=== PATIENT | male | born 1955 | race Caucasian/White ===

== ENCOUNTER 2018-06-14 09:29 | Day surgery (SDC) | payer MEDICAID ==
[2018-06-14] MEDS ORDERED: PROPOFOL 10 MG/ML VIAL IV ONE (09:30)
[2018-06-14] MEDS ORDERED: LIDOCAINE 2% MDV (20MG/ML) 20ML VIAL IV ONE (09:30)
--- NOTE | 2018-06-19 16:40 | Operative Note ---
DATE OF SURGERY: OPERATION: COLONOSCOPY. PREOPERATIVE DIAGNOSIS: Personal history of colon polyps. POSTOPERATIVE DIAGNOSES: 1. Sigmoid diverticulosis, moderate to severe. 2. Internal hemorrhoids. PREPARATION QUALITY: Good to excellent. ESTIMATED BLOOD LOSS: None. COMPLICATIONS: None. SPECIMENS: None. PROCEDURE: After informed consent was obtained from the patient, he was placed in the left lateral decubitus position in the endoscopy suite, sedated and monitored by the department of anesthesia. Digital rectal exam was unremarkable. A well-lubricated [id number] colonoscope was inserted into the rectum and advanced to the cecum. Preparation quality was good to excellent. The ileocecal valve, appendiceal orifice, ascending colon, transverse colon, and descending colon were free of inflammatory changes, mass lesions, or polyp. There were [id number] sigmoid diverticular changes. The rectum was unremarkable in forward and J-turn views other than internal hemorrhoids being noted. The endoscope was straightened, the rectal ampulla deflated, and the endoscope was removed. RECOMMENDATIONS: The patient should follow a high-fiber diet and use a fiber supplement. Based on his history, I would recommend repeat exam in 5 years. As always, thank you for allowing me to participate in the healthcare of your patients. CC: ORZ Bryan
== END 2018-06-14 11:25 | disposition home or self-care (01) ==
LOC: HOP 09:29
PROVIDERS: ATTEND Internal Medicine Gastroenterology
DX: Z12.11 Encounter for screening for malignant neoplasm of colon (principal); Z86.010 Personal history of colon polyps; K57.30 Diverticulosis of large intestine without perforation or abscess without bleeding; K64.8 Other hemorrhoids; E78.00 Pure hypercholesterolemia, unspecified; J44.9 Chronic obstructive pulmonary disease, unspecified; M54.9 Dorsalgia, unspecified; R12 Heartburn; R25.2 Cramp and spasm

== ENCOUNTER 2019-04-30 14:37 | Emergency (ER) | payer MEDICARE, MEDICAID ==
[2019-04-30] MEDS ORDERED: 0.9 % SODIUM CHLORIDE 1,000 ML BAG IV ONE (15:09)
[2019-04-30 15:24] LABS: ABSOLUTE NEUTROPHIL COUNT 5.76; BASO % 1.5 % (0-6); EOS % 6.3 % (0-6); GRAN % 69.6 % (47-80); HEMATOCRIT 43.7 % (42.0-52.0); LYMPH % 11.9 % (16-45); MEAN CELL VOLUME 84.9 fl (81-97); MEAN CORPUSCULAR HEMOGLOBIN 27.2 pg (27-33); MEAN PLATELET VOLUME 11.2 fl (7.4-10.4); MONO % 10.7 % (0-9); PLATELET COUNT 350 K/uL (130-400); RED BLOOD COUNT 5.15 M/uL (4.40-5.70); RED CELL DISTRIBUTION WIDTH 14.4 % (11.5-14.5); WHITE BLOOD COUNT W/O DIFF 8.3 K/uL (4.2-12.2)
[2019-04-30 15:46] LABS: BLOOD UREA NITROGEN 13 mg/dL (8-23)
[2019-04-30 15:47] LABS: CREATININE 1.1 mg/dL (0.7-1.2); EST GLOMERULAR FILTRATION RATE > 60 mL/min; TOTAL PROTEIN 7.5 g/dL (6.6-8.7)
[2019-04-30 15:49] LABS: GLUCOSE,RANDOM 87 mg/dL (74-109)
--- NOTE | 2019-04-30 15:51 | Emergency Department Record ---
History of Present Illness - General Chief Complaint: Arrythmia/Palpitations Stated Complaint: RAPID HEART RATE Time Seen by Provider: 04/30/19 14:53 Source: Patient Mode of Arrival: Wheelchair Limitations: No limitations - History of Present Illness Initial Comments: pt went to his pcp and was found to have a hr of 156 and was sent to the ed. pt has no symptoms MD Complaint: Rapid heart beat -: Unknown Context: Other Associated Symptoms: Denies other symptoms - Related Data Previous Rx's Medication Instructions Recorded Apixaban [Eliquis] 5 mg PO BID #14 tablet 04/30/19 Metoprolol Tartrate [Lopressor] 12.5 mg PO Q12H #20 tab 04/30/19 Allergies Allergy/AdvReac Type Severity Reaction Status Date / Time codeine Allergy Intermediate NAUSEA AND Verified 04/30/19 14:40 VOMITING diclofenac sodium Allergy Intermediate SWELLING Verified 04/30/19 14:40 [From Arthrotec] OF THE FACE meloxicam [From Mobic] Allergy Intermediate SWELLING Verified 04/30/19 14:40 OF THE FACE misoprostol [From Arthrotec] Allergy Intermediate SWELLING Verified 04/30/19 14:40 OF THE FACE Travel Screening - Travel/Exposure Within Last 30 Days Have you traveled within the last 30 days?: No - Travel Symptoms Symptom Screening: None Review of Systems Reviewed: No additional complaints except as noted below Constitutional: Reports: As per HPI. Denies: Chills, Fever, Malaise, Night swea ts, Weakness, Weight change Eyes: Reports: As per HPI. Denies: Eye discharge, Eye pain, Photophobia, Vision change ENT: Reports: As per HPI. Denies: Congestion, Dental pain, Ear pain, Epistaxis, Hearing loss, Throat pain Respiratory: Reports: As per HPI. Denies: Cough, Dyspnea, Hemoptysis, Stridor, Wheezes Cardiovascular: Reports: As per HPI. Denies: Arrhythmia, Chest pain, Dyspnea on exertion, Edema, Murmurs, Orthopnea, Palpitations, Paroxysmal nocturnal dyspnea, Rheumatic Fever, Syncope Endocrine: Reports: As per HPI. Denies: Fatigue, Heat or cold intolerance, P olydipsia, Polyuria Gastrointestinal: Reports: As per HPI. Denies: Abdominal pain, Constipation, Diarrhea, Hematemesis, Hematochezia, Melena, Nausea, Vomiting Genitourinary: Reports: As per HPI. Denies: Dysuria, Frequency, Hematuria, Incontinence, Retention, Testicular pain, Testicular mass, Urgency Musculoskeletal: Reports: As per HPI. Denies: Arthralgia, Back pain, Gout, Joint swelling, Myalgia, Neck pain Skin: Reports: As per HPI. Denies: Bruising, Change in color, Change in hair/nails, Lesions, Pruritus, Rash Neurological: Reports: As per HPI. Denies: Abnormal gait, Confusion, Headache, Numbness, Paresthesias, Seizure, Tingling, Tremors, Vertigo, Weakness Psychiatric: Reports: As per HPI. Denies: Anxiety, Auditory hallucinations, Depression, Homicidal thoughts, Suicidal thoughts, Visual hallucinations Hematological/Lymphatic: Reports: As per HPI. Denies: Anemia, Blood Clots, Easy bleeding, Easy bruising, Swollen glands Past Medical History - SOCIAL HISTORY Smoking Status: Former smoker Alcohol Use: None Drug Use: None - RESPIRATORY Hx Respiratory Disorders: Yes Hx COPD: Yes - CARDIOVASCULAR Hx Cardio Disorders: Yes Comment:: borderline high cholesterol-on simvastatin - NEURO Hx Neuro Disorders: No - GI Hx GI Disorders: Yes Hx Reflux: Yes (rare) Hx of Polyps: Yes (x2) Comment:: bloating, gas - Hx Genitourinary Disorders: Yes Hx Prostate Problems: Yes (slow to urinate) - ENDOCRINE Hx Endocrine Disorders: No - MUSCULOSKELETAL Hx Musculoskeletal Disorders: Yes Hx Arthritis: Yes (back) - PSYCH Hx Psych Problems: No - HEMATOLOGY/ONCOLOGY Hx Hematology/Oncology Disorders: No Family Medical History Any Significant Family History?: Yes Family Hx Comment (NOT TO BE USED IN PLACE OF ITEMS BELOW): father-brain aneurysm Hx Cancer: Brother/Sister *Cancer Comment: 1/2 sister-breast Physical Exam - General General Appearance: Alert, Oriented x3, Cooperative, Mild distress - Head Head exam: Normal inspection - Eye Eye exam: Normal appearance, PERRL, EOMI Pupils: Normal accommodation - ENT ENT exam: Normal exam, Mucous membranes moist, Normal external ear exam, Normal orophraynx Ear exam: Normal external inspection. negative: External canal tenderness Nasal Exam: Normal inspection. negative: Discharge, Sinus tenderness Mouth exam: Normal external inspection, Tongue normal Teeth exam: Normal inspection. negative: Dental caries Throat exam: Normal inspection. negative: Tonsillar erythema, Tonsillar exudate - Neck Neck exam: Normal inspection, Full ROM. negative: Tenderness - Respiratory Respiratory exam: Normal lung sounds bilaterally. negative: Respiratory distress - Cardiovascular Cardiovascular Exam: Normal rhythm, Normal heart sounds, Tachycardia - GI/Abdominal GI/Abdominal exam: Soft, Normal bowel sounds. negative: Tenderness - Rectal Rectal exam: Deferred - exam: Deferred - Extremities Extremities exam: Normal inspection, Full ROM, Normal capillary refill. negative: Tenderness - Back Back exam: Reports: Normal inspection, Full ROM. Denies: Muscle spasm, Rash noted, Tenderness - Neurological Neurological exam: Alert, CN II-XII intact, Normal gait, Oriented X3 - Psychiatric Psychiatric exam: Normal affect, Normal mood - Skin Skin exam: Dry, Intact, Normal color, Warm Course Vital Signs 04/30/19 14:42 Temperature 98.8 F Pulse Rate 156 H Respiratory 20 Rate Blood Pressure 110/75 Pulse Ox 96 - Reevaluation(s) Reevaluation #1: 04/30/19 15:58 pt spontaneously slowed down and is now in afib at a rate of 75 Reevaluation #2: 04/30/19 17:12 pt conts to be in afib. pt advised to be admitted. pt is refusing and has been warned of risks of stroke and . pt d/w dr strauss who recommended eliquis and metoprolol and he will see him this week. Reevaluation #3: 04/30/19 17:16 pt given 1 week of eliquis Medical Decision Making - Lab Data Result diagrams: 04/30/19 14:40 04/30/19 14:40 Lab Results 04/30/19 Range/Units 14:40 WBC 8.3 (4.2-12.2) K/uL RBC 5.15 (4.40-5.70) M/uL Hgb 14.0 (14.0-18.0) gm/dl Hct 43.7 (42.0-52.0) % MCV 84.9 (81-97) fl MCH 27.2 (27-33) pg MCHC 32.0 (32-36) g/dl RDW 14.4 (11.5-14.5) % Plt Count 350 (130-400) K/uL MPV 11.2 H (7.4-10.4) fl Gran % 69.6 (47-80) % Lymphocytes % 11.9 L (16-45) % Monocytes % 10.7 H (0-9) % Eosinophils % 6.3 H (0-6) % Basophils % 1.5 (0-6) % Absolute Neutrophils 5.76 Disposition Disposition: Other Clinical Impression: Atrial fibrillation Qualifiers: Atrial fibrillation type: persistent Qualified Code(s): I48.1 - Persistent atrial fibrillation Disposition: Against Medical Advice Condition: (2) Stable Instructions: A-fib (Atrial Fibrillation) (ED) Additional Instructions: f/u with dr strauss without fail this week. may return at any time Prescriptions: Apixaban [Eliquis] 5 mg PO BID #14 tablet Metoprolol Tartrate [Lopressor] 12.5 mg PO Q12H #20 tab Referrals: Faisal Strauss M.D. [MEDICAL DOCTOR] - Forms: Patient Portal Access Quality - Quality Measures Quality Measures: N/A - Blood Pressure Screening Does Patient Have Any of the Following: No Blood Pressure Classification: Normal BP Reading Systolic Measurement: 110 Diastolic Measurement: 75 Screening for High Blood Pressure: < Normal BP, F/U Not Required > [G8783]
[2019-04-30 15:52] LABS: ALB/GLOB RATIO 1.1 (1.1-1.8); ALBUMIN 3.9 g/dL (4.0-5.0); ALKALINE PHOSPHATASE 97 U/L (40-129); ALT/SGPT 15 U/L (<41); AST/SGOT 14 U/L (10.0-50.0)
[2019-04-30 16:03] LABS: THYROID STIMULATING HORMONE 1.09 uIU/mL (0.270-4.20)
[2019-04-30] MEDS ORDERED: DILTIAZEM 25MG/5ML VIAL IV ONE (16:55)
[2019-04-30] MEDS ORDERED: APIXABAN 5MG TABLET PO SCH (17:15)
--- NOTE | 2019-05-01 13:25 | RADIOLOGY REPORT ---
EXAM: CHEST, TWO VIEWS HISTORY: NEW ONSET ATRIAL FIBRILLATION. TACHYCARDIA. TECHNIQUE: Upright PA and lateral views of the chest were obtained. Comparison: Two view chest radiographic examination dated 03/11/19. FINDINGS: The triangular opacity previously demonstrated within the medial right hemithorax space appears more pronounced and greater in density. This finding is suspicious for atelectasis or infiltrate. The inferior right wanda appears mildly prominent. An obstructing endobronchial lesion cannot be excluded. New since the prior examination is a small right basilar pleural effusion. Minor atelectasis or infiltrate in the lateral right lung base is also noted. The left lung and pleural space remain clear. Evaluation of heart size is limited as the right heart border is partially obscured. No gross cardiomegaly or pulmonary venous hypertension. Biapical pleural and parenchymal scarring, right slightly greater than left. The lungs remain hyperinflated consistent with COPD. IMPRESSION: 1. OPACITY IN THE MEDIAL RIGHT HEMITHORAX SPACE APPEARS SLIGHTLY MORE PRONOUNCED THAN ON THE PRIOR EXAMINATION AND IS CONSISTENT WITH ATELECTASIS OR INFILTRATE. THERE IS MILD PROMINENCE OF THE INFERIOR RIGHT HILUM. AN OBSTRUCTING ENDOBRONCHIAL LESION CANNOT BE EXCLUDED. FURTHER EVALUATION WITH CT EXAMINATION IS RECOMMENDED. 2. NEW SMALL RIGHT BASILAR PLEURAL EFFUSION WITH MINOR ATELECTASIS OR INFILTRATE WITHIN THE LATERAL RIGHT BASE. 3. HYPERINFLATION OF THE LUNGS CONSISTENT WITH COPD. JOB NUMBER: [id number] [facility]
== END 2019-04-30 17:54 | disposition left against medical advice (07) ==
LOC: ER 14:37
DX: I48.1 Persistent atrial fibrillation (principal); J44.9 Chronic obstructive pulmonary disease, unspecified; Z79.01 Long term (current) use of anticoagulants
CPT/HCPCS: 71046; 80053; 84443; 85025; 93005; 93010; 96374; 99285; J7030

== ENCOUNTER 2019-05-06 06:04 | Emergency (ER) | payer MEDICARE, MEDICAID ==
[2019-05-06] MEDS ORDERED: IPRATROPIUM/ALBUTEROL (0.5MG/3MG) NEB INH ONE (06:14)
[2019-05-06] MEDS ORDERED: 0.9 % SODIUM CHLORIDE 1000ML 500 ML IV SCH (06:15)
[2019-05-06] MEDS ORDERED: DILTIAZEM 25MG/5ML VIAL IV ONE (06:16)
--- NOTE | 2019-05-06 06:19 | Emergency Department Record ---
History of Present Illness - General Chief Complaint: Shortness of breath Stated Complaint: LUKE Time Seen by Provider: 05/06/19 06:11 Source: Patient, Old records reviewed Mode of Arrival: Ambulatory Limitations: No limitations - History of Present Illness Initial Comments: 63 yo male presents to ED for evaluation of difficulty in breathing symptoms, re ports history of COPD. Patient reports intermittent symptoms since January of the year, reports he was diagnosed with Bronchitis at that time. Patient denies fevers, chills, or recent illness. Patient denies chest pain or discomfort symptoms. MD Complaint: Shortness of breath Onset/Timin -: Month(s) Severity: Moderate Consistency: Constant Improves With: Nothing Worsens With: Coughing, Lying flat, Movement Known History Of: COPD, Other Context: Recent URI Associated Symptoms: Orthopnia Treatments Prior to Arrival: Bronchodilator - Related Data Home Oxygen Therapy: No Previous Rx's Medication Instructions Recorded Apixaban [Eliquis] 5 mg PO BID #14 tablet 04/30/19 Metoprolol Tartrate [Lopressor] 12.5 mg PO Q12H #20 tab 04/30/19 Allergies Allergy/AdvReac Type Severity Reaction Status Date / Time codeine Allergy Intermediate NAUSEA AND Verified 04/30/19 14:40 VOMITING diclofenac sodium Allergy Intermediate SWELLING Verified 04/30/19 14:40 [From Arthrotec] OF THE FACE meloxicam [From Mobic] Allergy Intermediate SWELLING Verified 04/30/19 14:40 OF THE FACE misoprostol [From Arthrotec] Allergy Intermediate SWELLING Verified 04/30/19 14:40 OF THE FACE Travel Screening - Travel/Exposure Within Last 30 Days Have you traveled within the last 30 days?: No - Travel Symptoms Symptom Screening: None Review of Systems Constitutional: Denies: Chills, Fever, Malaise, Night sweats Eyes: Denies: Eye discharge, Eye pain ENT: Denies: Congestion, Ear pain, Epistaxis Respiratory: Reports: Cough, Dyspnea, Wheezes Cardiovascular: Denies: Chest pain, Dyspnea on exertion Endocrine: Denies: Fatigue, Heat or cold intolerance Gastrointestinal: Denies: Abdominal pain, Nausea, Vomiting Genitourinary: Denies: Incontinence, Retention Musculoskeletal: Denies: Arthralgia, Back pain Skin: Denies: Bruising, Change in color Neurological: Denies: Abnormal gait, Confusion, Headache, Seizure Psychiatric: Denies: Anxiety Hematological/Lymphatic: Reports: Easy bleeding, Easy bruising. Denies: Anemia, Blood Clots Past Medical History - SOCIAL HISTORY Smoking Status: Former smoker Drug Use: None - RESPIRATORY Hx Respiratory Disorders: Yes Hx COPD: Yes - CARDIOVASCULAR Hx Cardio Disorders: Yes Comment:: borderline high cholesterol-on simvastatin - NEURO Hx Neuro Disorders: No - GI Hx GI Disorders: Yes Hx Reflux: Yes (rare) Hx of Polyps: Yes (x2) Comment:: bloating, gas - Hx Genitourinary Disorders: Yes Hx Prostate Problems: Yes (slow to urinate) - ENDOCRINE Hx Endocrine Disorders: No - MUSCULOSKELETAL Hx Musculoskeletal Disorders: Yes Hx Arthritis: Yes (back) - PSYCH Hx Psych Problems: No - HEMATOLOGY/ONCOLOGY Hx Hematology/Oncology Disorders: No Family Medical History Family Hx Comment (NOT TO BE USED IN PLACE OF ITEMS BELOW): father-brain aneurysm Hx Cancer: Brother/Sister *Cancer Comment: 2 sister-breast Physical Exam - General General Appearance: Alert, Oriented x3, Cooperative, Mild distress Limitations: No limitations - Head Head exam: Atraumatic, Normocephalic, Normal inspection Head exam detail: negative: Abrasion, Contusion, Willis's sign, General te nderness, Hematoma, Laceration - Eye Eye exam: Normal appearance. negative: Conjunctival injection, Periorbital swelling, Periorbital tenderness, Scleral icterus - ENT Ear exam: negative: Auricular hematoma, Auricular trauma Nasal Exam: negative: Active bleeding, Discharge, Dried blood, Foreign body Mouth exam: negative: Drooling, Laceration, Muffled voice, Tongue elevation - Neck Neck exam: Normal inspection. negative: Meningismus, Tenderness - Respiratory Respiratory exam: Decreased breath sounds, Prolonged expiratory, Wheezes. negative: Rhonchi, Stridor - Cardiovascular Cardiovascular Exam: Normal rhythm, Normal heart sounds, Tachycardia - GI/Abdominal GI/Abdominal exam: Soft. negative: Rebound, Rigid, Tenderness - Rectal Rectal exam: Deferred - exam: Deferred - Extremities Extremities exam: Normal inspection. negative: Pedal edema, Tenderness - Back Back exam: Denies: CVA tenderness (R), CVA tenderness (L) - Neurological Neurological exam: Alert, Normal gait, Oriented X3 - Psychiatric Psychiatric exam: Normal affect, Normal mood - Skin Skin exam: Normal color. negative: Abrasion Type of lesion: negative: abrasion Course Vital Signs 05/06/19 06:08 Pulse Rate 150 H Respiratory 36 H Rate Blood Pressure 103/76 Pulse Ox 92 L - Reevaluation(s) Reevaluation #1: 05/06/19 06:21 EKG: Atrial flutter 152 Normal axis, normal intervals Rate-related ST-T wave changes Patient was seen and examined, duoneb given upon arrival Previous records were reviewed, patient was seen 04/30/19 for diagnosis of atrial fibrillation, started on Metoprolol/Eliquis. Patient spontaneously converted in the ED. Patient then left AMA with instructions to follow-up with Dr. Phoenix later this week. Patient did not call Dr. Phoenix follow-up last week. Cardizem ordered to be given both IV bolus (10 mg) and drip started at 5 mg/hr. Reevaluation #2: 05/06/19 06:35 Patient received 10 mg Cardizem IV bolus, rate slowed to 78. Repeat EKG: Atrial Flutter 4:1 block Normal axis, normal intervals No acute ST-T wave changes are present. Reevaluation #3: 05/06/19 06:45 CXR: Interval worsening infiltrate/fluid RLL Bipap was initiated to assist with patient's work of breathing at this time following review of the patient's radiograph. Reevaluation #4: 05/06/19 06:56 Laboratory studies were reviewed and appear grossly unremarkable for an acute process except for: Troponin 0.012 Rocephin ordered to infuse. Eliquis (10 mg) morning dose ordered PO this morning. Case was discussed with Dr. Diamond, will accept transfer to the [facility] ED for further evaluation. Medical Decision Making - Lab Data Result diagrams: 05/06/19 06:10 05/06/19 06:10 Critical Care Time Critical Care Time: Yes Total Critical Care Time: 60 Critical Care Time: Diagnosis and treatment of atrial fibrillation/atrial flutter with RVR, COPD with exacerbation and treatment via Bipap, laboratory review and interpretation, EKG interpretation, and consultation for transfer. Disposition Disposition: Transfer Clinical Impression: COPD with exacerbation, Right lower lobe pulmonary infiltrate Atrial flutter Qualifiers: Atrial flutter type: unspecified Qualified Code(s): I48.92 - Unspecified atrial flutter Disposition: Acute Care Hospital Transfer Transfer To: [facility] Reason For Transfer: Atrial Flutter Accepting Physician: Dara Time Discussed w/Accepting Physician: 06:57 Condition: (2) Stable Forms: Patient Portal Access Time of Disposition: 06:57 Quality - Quality Measures Quality Measures: N/A - Blood Pressure Screening Does Patient Have Any of the Following: No Blood Pressure Classification: Normal BP Reading Systolic Measurement: 103 Diastolic Measurement: 76 Screening for High Blood Pressure: < Normal BP, F/U Not Required > [G8783]
[2019-05-06] MEDS ORDERED: DILTIAZEM HCL 125 MG in 0.9 % SODIUM CHLORIDE 100ML 100 ML IV SCH (06:30)
[2019-05-06 06:34] LABS: ABSOLUTE NEUTROPHIL COUNT 8.74; BASO % 0.5 % (0-6); GRAN % 79.7 % (47-80); HEMATOCRIT 44.7 % (42.0-52.0); HEMOGLOBIN 14.2 gm/dl (14.0-18.0); LYMPH % 8.6 % (16-45); MEAN CELL VOLUME 86.3 fl (81-97); MEAN CORPUSCULAR HEMOGLOBIN 27.4 pg (27-33); MEAN CORPUSCULAR HGB CONC 31.8 g/dl (32-36); MEAN PLATELET VOLUME 10.5 fl (7.4-10.4); MONO % 8.2 % (0-9); PLATELET COUNT 407 K/uL (130-400); RED BLOOD COUNT 5.18 M/uL (4.40-5.70); RED CELL DISTRIBUTION WIDTH 14.6 % (11.5-14.5)
[2019-05-06] MEDS ORDERED: METHYLPREDNISOLONE PF 125MG/VIAL IVP ONE (06:38)
[2019-05-06] MEDS ORDERED: ALBUTEROL (0.5% CONCENTRATED) 2.5 MG/0.5 ML VIAL.NEB INH ONE (06:38)
[2019-05-06 06:45] LABS: BLOOD UREA NITROGEN 13 mg/dL (8-23)
[2019-05-06 06:46] LABS: CREATININE 1.1 mg/dL (0.7-1.2); EST GLOMERULAR FILTRATION RATE > 60 mL/min; TOTAL PROTEIN 7.5 g/dL (6.6-8.7)
[2019-05-06 06:48] LABS: GLUCOSE,RANDOM 109 mg/dL (74-109)
[2019-05-06] MEDS ORDERED: 0.9 % SODIUM CHLORIDE 1000ML 1,000 ML IV PRN (06:49)
[2019-05-06 06:51] LABS: ALB/GLOB RATIO 1.1 (1.1-1.8); ALKALINE PHOSPHATASE 95 U/L (40-129); ALT/SGPT 15 U/L (<41); AST/SGOT 11 U/L (10.0-50.0)
[2019-05-06] MEDS ORDERED: CEFTRIAXONE 1GM/50ML BAG 1 GM/50 ML BAG IVPB ONE (07:03)
[2019-05-06] MEDS ORDERED: APIXABAN 5MG TABLET PO ONE (07:06)
--- NOTE | 2019-05-06 14:32 | RADIOLOGY REPORT ---
EXAM: CHEST, SINGLE VIEW HISTORY: TACHYCARDIA WITH ATRIAL FIBRILLATION. TECHNIQUE: A single portable AP semi-upright view of the chest was performed. Comparison: 04/30/19. FINDINGS: The heart is upper normal in size. There is mild pulmonary vascular congestion. There is worsening infiltrate within the right lung base with associated small right pleural effusion. The effusion has also increased in size. There is persistent fullness within the right infrahilar region suggesting an area of post obstructive atelectasis. A follow-up chest CT is recommended for further characterization. There is no pneumothorax. The bones appear intact. IMPRESSION: 1. WORSENING RIGHT BASILAR INFILTRATE AND EFFUSION. 2. INTERVAL DEVELOPMENT OF MILD PULMONARY VASCULAR CONGESTION. 3. PERSISTENT FOCAL OPACIFICATION WITHIN THE INFRAHILAR RIGHT LUNG SUGGESTING AN AREA OF POST OBSTRUCTIVE ATELECTASIS. A FOLLOW-UP CHEST CT IS RECOMMENDED FOR FURTHER CHARACTERIZATION. JOB NUMBER: [id number] MTDD
== END 2019-05-06 07:24 | disposition short-term general hospital (02) ==
LOC: ER 06:04
DX: I48.0 Paroxysmal atrial fibrillation (principal); J44.1 Chronic obstructive pulmonary disease with (acute) exacerbation; R91.8 Other nonspecific abnormal finding of lung field; Z87.891 Personal history of nicotine dependence; Z79.01 Long term (current) use of anticoagulants
CPT/HCPCS: 71045; 80053; 83880; 84484; 85025; 93005; 93010; 94660; 96365; 96366; 96368; 96375; 99291; J0696; J2930; J7030